=== PATIENT | male | born 1970 | race Caucasian/White ===

== ENCOUNTER → 2017-04-22 | Outpatient (CLI) | payer OTHER ==
--- NOTE | 2017-04-22 11:51 | XR ---
Left foot HISTORY: Left foot pain 3 views of the left foot There are some degenerative changes at the first metatarsophalangeal joint. Alignment and bone minera lization are maintained. No fracture or dislocation. There is a small plantar calcaneus spur. Calcifi cation is present level of insertion of the Achilles tendon. IMPRESSION: Mild degenerative changes and additional findings above.
== END | disposition home or self-care (01) ==
LOC: RADXRMAIN 07:51
PROVIDERS: ATTEND Internal Medicine
DX: M77.32 Calcaneal spur, left foot (principal); Z98.890 Other specified postprocedural states

== ENCOUNTER → 2017-05-08 | Outpatient (CLI) | payer OTHER ==
--- NOTE | 2017-05-08 09:47 | MR ---
EXAMINATION TYPE: MR lumbar spine wo con DATE OF EXAM: 05/08/2017 COMPARISON: NONE HISTORY: Low back pain TECHNIQUE: T1 and T2 axial and sagittal images of the lumbar spine are submitted. FINDINGS: There is no abnormal signal seen within the visualized spinal cord or paraspinal soft tissu es. At L1-2 there is mild disc desiccation but no disc herniation or canal stenosis. Neural foramina molina nt. At L2-3 there is no disc herniation or canal stenosis. No foraminal encroachment. Minimal left parace ntral disc bulging. At L3-4 there is hypertrophic change of the facets. No disc herniation or canal stenosis. No foramina l encroachment. At L4-5 there is there is facet arthropathy and disc desiccation with broad-based central disc bulgin g slightly greater paracentrally to the right. Mild effacement of thecal sac. No foraminal encroachme nt. At L5-S1 there is no disc herniation or canal stenosis. No foraminal encroachment. IMPRESSION: 1. Disc bulging L4-L5 with mild effacement of thecal sac but no canal stenosis or foraminal encroachm ent. 2. Minimal left paracentral disc bulging L2-L3.
== END | disposition home or self-care (01) ==
LOC: RADMRIMAIN 08:35
PROVIDERS: ATTEND Internal Medicine
DX: M51.26 Other intervertebral disc displacement, lumbar region (principal)
CPT/HCPCS: 72148

== ENCOUNTER 2017-06-03 07:08 | Emergency (ER) | payer OTHER ==
[2017-06-03 07:21] VITALS: BP 135/91; PULSE 62; RESP 16; TEMP 97.5
[2017-06-03] MEDS ORDERED: KETOROLAC 60 MG/2 ML VIAL IM STA (07:32)
[2017-06-03] MEDS ORDERED: ORPHENADRINE 30 MG/ML 2 ML VIAL IM STA (07:32)
--- NOTE | 2017-06-03 07:36 | ED ---
General Adult HPI - General Chief complaint: Back Pain/Injury Stated complaint: BACK PAIN Time Seen by Provider: 06/03/17 07:15 Source: patient, RN notes reviewed Mode of arrival: ambulatory Limitations: no limitations - History of Present Illness Initial comments: This 46-year-old male who presents emergency Department with a long-standing history of back pain. Patient states he just got an MRI the other day and was told he had some disc bulging. Patient states since he got the MRI 2 weeks ago he twisted and now has pain on the lower left side. Patient denies any radiation of the pain. Patient states the pain is worse with flexing or bending. Patient denies any numbness or weakness. Patient denies any urinary symptoms such as incontinence or urinary retention. Patient states the Motrin just isn't enough for his pain since coming to the emergency department. He has yet to follow up with his primary medical care doctor. - Related Data Home Medications Medication Instructions Recorded Confirmed Dexlansoprazole [Dexilant] 30 mg PO DAILY 08/29/14 08/29/14 Previous Rx's Medication Instructions Recorded Cyclobenzaprine [Flexeril] 10 mg PO TID #20 tab 06/03/17 Ketorolac [Toradol] 10 mg PO Q6HR #15 tab 06/03/17 Allergies Allergy/AdvReac Type Severity Reaction Status Date / Time No Known Allergies Allergy Verified 06/03/17 07:21 Review of Systems ROS Statement: Those systems with pertinent positive or pertinent negative responses have been documented in the HPI. ROS Other: All systems not noted in ROS Statement are negative. Past Medical History Past Medical History: Hyperlipidemia Additional Past Medical History / Comment(s): perforated bowel History of Any Multi-Drug Resistant Organisms: None Reported Additional Past Surgical History / Comment(s): stoma Past Psychological History: No Psychological Hx Reported Smoking Status: Never smoker Past Alcohol Use History: None Reported Past Drug Use History: None Reported General Exam - General Exam Comments Initial Comments: GENERAL: Patient is well-developed and well-nourished. Patient is nontoxic and well- hydrated and is in mild distress. ENT: Neck is soft and supple. No significant lymphadenopathy is noted. Oropharynx is clear. Moist mucous membranes. Neck has full range of motion without eliciting any pain. EYES: The sclera were anicteric and conjunctiva were pink and moist. Extraocular movements were intact and pupils were equal round and reactive to light. Eyelids were unremarkable. PULMONARY: Unlabored respirations. Good breath sounds bilaterally. No audible rales rhonchi or wheezing was noted. CARDIOVASCULAR: There is a regular rate and rhythm without any murmurs gallops or rubs. ABDOMEN: Soft and nontender with normal bowel sounds. SKIN: Skin is clear with no lesions or rashes and otherwise unremarkable. NEUROLOGIC: Patient is alert and oriented x3. Cranial nerves II through XII are grossly intact. Motor and sensory are also intact. Normal speech, volume and content. Symmetrical smile. Patient has normal leg raise MUSCULOSKELETAL: Normal extremities with adequate strength and full range of motion. No lower extremity swelling or edema. No calf tenderness. LYMPHATICS: No significant lymphadenopathy is noted PSYCHIATRIC: Normal psychiatric evaluation. Normal interpersonal interactions appears functionally intact in deals appropriately with others. No signs of depression. No signs of anxiety. Limitations: no limitations Course Vital Signs 06/03/17 07:18 Temperature 97.5 F L Pulse Rate 62 Respiratory 16 Rate Blood Pressure 135/91 O2 Sat by Pulse 97 Oximetry Disposition Clinical Impression: Strain of lumbar region Disposition: HOME SELF-CARE Condition: Good Instructions: Acute Low Back Pain (ED) Prescriptions: Cyclobenzaprine [Flexeril] 10 mg PO TID #20 tab Ketorolac [Toradol] 10 mg PO Q6HR #15 tab Referrals: Rasheed Rao DO [Primary Care Provider] - 1-2 days Time of Disposition: 07:35
== END 2017-06-03 07:49 | disposition home or self-care (01) ==
LOC: EC 07:08
DX: S39.012A Strain of muscle, fascia and tendon of lower back, initial encounter (principal); Z79.899 Other long term (current) drug therapy; X50.1XXA Overexertion from prolonged static or awkward postures, initial encounter
CPT/HCPCS: 99283; 96372 ×2; J2360; J1885

== ENCOUNTER 2022-02-01 14:15 | Observation (INO) | payer OTHER ==
[2022-02-01] MEDS ORDERED: SODIUM CHLORIDE 0.9% 1,000 ML IV STA (14:30)
[2022-02-01] MEDS ORDERED: MECLIZINE 12.5 MG TAB PO STA (14:30)
[2022-02-01] MEDS ORDERED: METOCLOPRAMIDE 5 MG/ML 2 ML VIAL IVP STA (14:31)
--- NOTE | 2022-02-01 14:54 | ED ---
General Adult HPI - General Chief complaint: Chest Pain Stated complaint: Chest pain, SOB, vomiting Time Seen by Provider: 02/01/22 14:22 Source: patient Mode of arrival: ambulatory Limitations: no limitations - History of Present Illness Initial comments: Patient is a 51-year-old male with history of diverticulitis with bowel perforation presenting with multiple complaints. Patient states that today he started having sudden onset dizziness. He admits to nausea and vomiting. He admits to right sided chest pain and shortness of breath, suspects that this coincides with the vomiting. Symptoms were sudden in onset. Chest pain does not radiate down the arm, up the neck, or to the back. Denies abdominal pain. Admits to generalized weakness. States that the dizziness gets worse with range of motion. He states that "I feel drunk", denies any alcohol or drug use. No fever, chills, vision or hearing changes, headache, neck pain or stiffness, cough, congestion, sore throat, unilateral weakness, numbness, tingling. - Related Data Home Medications Medication Instructions Recorded Confirmed Esomeprazole Magnesium [NexIUM 20 mg PO DAILY 02/01/22 02/01/22 24Hr] Meloxicam [Mobic] 7.5 - 15 mg PO DAILY PRN 02/01/22 02/01/22 Allergies Allergy/AdvReac Type Severity Reaction Status Date / Time No Known Allergies Allergy Verified 02/01/22 18:23 Review of Systems ROS Statement: Those systems with pertinent positive or pertinent negative responses have been documented in the HPI. ROS Other: All systems not noted in ROS Statement are negative. Past Medical History Past Medical History: Hyperlipidemia Additional Past Medical History / Comment(s): perforated bowel History of Any Multi-Drug Resistant Organisms: None Reported Additional Past Surgical History / Comment(s): stoma Past Psychological History: No Psychological Hx Reported Past Alcohol Use History: None Reported Past Drug Use History: None Reported General Exam General appearance: alert, anxious, lethargic Head exam: Present: atraumatic, normocephalic, normal inspection Eye exam: Present: normal appearance, PERRL, EOMI. Absent: scleral icterus, con junctival injection, periorbital swelling Pupils: Present: normal accommodation Neck exam: Present: normal inspection Respiratory exam: Present: normal lung sounds bilaterally. Absent: respiratory distress, wheezes, rales, rhonchi, stridor Cardiovascular Exam: Present: regular rate, normal rhythm, normal heart sounds. Absent: systolic murmur, diastolic murmur, rubs, gallop, clicks GI/Abdominal exam: Present: soft. Absent: distended, tenderness, guarding, rebound, rigid Neurological exam: Present: alert, oriented X3, CN II-XII intact Expanded Patient oriented to: Present: person, place, time Speech: Present: fluid speech Cranial nerves: EOM's Intact: Normal Eye Response: (4) open spontaneously Motor Response: (6) obeys commands Verbal Response: (5) oriented Daniela Total: 15 Psychiatric exam: Present: anxious Skin exam: Present: warm, dry, intact, normal color. Absent: rash Course Vital Signs 02/01/22 02/01/22 02/01/22 14:17 15:55 17:43 Temperature 97 F L Pulse Rate 62 61 54 L Respiratory 16 18 16 Rate Blood Pressure 143/91 126/83 132/88 O2 Sat by Pulse 99 98 98 Oximetry 02/01/22 18:43 Temperature 97.9 F Pulse Rate 68 Respiratory 18 Rate Blood Pressure 128/96 O2 Sat by Pulse 98 Oximetry EKG Findings - EKG Comments: EKG Findings:: Sinus bradycardia rate of 56. NM interval 173. QRS 90. QT 417. QTC 410. No T-wave inversion or ST deviation. EKG interpreted by me Medical Decision Making - Medical Decision Making Patient is a 51-year-old male presenting with chief complaint of dizziness started today. Admits to nausea and vomiting. Admits to mild chest pain located on the right side. Physical examination shows no focal weakness, extraocular motions are intact, PERRLA, full sensation is intact, heart and lungs are clear to auscultation. Vertigo appears dependent on position, worsens with head movement. CBC shows no leukocytosis or anemia. Troponin is less than 0.012. CMP is grossly unremarkable. Patient is negative for influenza, RSV, and Covid. Noncontrast brain CT shows no acute intracranial process, this is confirmed by my independent viewing. Chest x-ray shows no acute cardiopulmonary process, this is confirmed per my interpretation. Patient was trialed Reglan, scopolamine patch, meclizine, and Benadryl. On each reassessment patient was still unable to maintain a steady gait due to dizziness. He does not appear safe for discharge home. Patient will be admitted for vertigo. I spoke with Dr. Diana, who accepted admission. Patient is agreeable with this plan. I discussed this case with my attending Dr. Domínguez - Lab Data Result diagrams: 02/01/22 14:54 02/01/22 14:54 Lab Results 02/01/22 02/01/22 02/01/22 Range/Units 14:54 14:54 14:54 WBC 7.5 (3.8-10.6) k/uL RBC 5.04 (4.30-5.90) m/uL Hgb 15.3 (13.0-17.5) gm/dL Hct 43.6 (39.0-53.0) % MCV 86.6 (80.0-100.0) fL MCH 30.4 (25.0-35.0) pg MCHC 35.1 (31.0-37.0) g/dL RDW 12.8 (11.5-15.5) % Plt Count 147 L (150-450) k/uL MPV 10.2 Neutrophils % 61 % Lymphocytes % 30 % Monocytes % 5 % Eosinophils % 1 % Basophils % 1 % Neutrophils # 4.5 (1.3-7.7) k/uL Lymphocytes # 2.3 (1.0-4.8) k/uL Monocytes # 0.4 (0-1.0) k/uL Eosinophils # 0.1 (0-0.7) k/uL Basophils # 0.1 (0-0.2) k/uL PT 10.1 (9.0-12.0) sec INR 0.9 (<1.2) APTT 21.3 L (22.0-30.0) sec Sodium 137 (137-145) mmol/L Potassium 3.9 (3.5-5.1) mmol/L Chloride 104 (98-107) mmol/L Carbon Dioxide 26 (22-30) mmol/L Anion Gap 7 mmol/L BUN 17 (9-20) mg/dL Creatinine 1.08 (0.66-1.25) mg/dL Est GFR (CKD-EPI)AfAm >90 (>60 ml/min/1.73 sqM) Est GFR (CKD-EPI)NonAf 78 (>60 ml/min/1.73 sqM) Glucose 113 H (74-99) mg/dL Plasma Lactic Acid Bin (0.7-2.0) mmol/L Calcium 10.1 (8.4-10.2) mg/dL Magnesium 1.9 (1.6-2.3) mg/dL Total Bilirubin 0.9 (0.2-1.3) mg/dL AST 36 (17-59) U/L ALT 54 H (4-49) U/L Alkaline Phosphatase 82 (38-126) U/L Troponin I (0.000-0.034) ng/mL Total Protein 6.8 (6.3-8.2) g/dL Albumin 4.5 (3.5-5.0) g/dL Amylase 56 (30-110) U/L Lipase 78 (23-300) U/L Influenza Type A (PCR) (Not Detectd) Influenza Type B (PCR) (Not Detectd) RSV (PCR) (Not Detectd) SARS-CoV-2 (PCR) (Not Detectd) 02/01/22 02/01/22 02/01/22 Range/Units 14:54 14:54 14:54 WBC (3.8-10.6) k/uL RBC (4.30-5.90) m/uL Hgb (13.0-17.5) gm/dL Hct (39.0-53.0) % MCV (80.0-100.0) fL MCH (25.0-35.0) pg MCHC (31.0-37.0) g/dL RDW (11.5-15.5) % Plt Count (150-450) k/uL MPV Neutrophils % % Lymphocytes % % Monocytes % % Eosinophils % % Basophils % % Neutrophils # (1.3-7.7) k/uL Lymphocytes # (1.0-4.8) k/uL Monocytes # (0-1.0) k/uL Eosinophils # (0-0.7) k/uL Basophils # (0-0.2) k/uL PT (9.0-12.0) sec INR (<1.2) APTT (22.0-30.0) sec Sodium (137-145) mmol/L Potassium (3.5-5.1) mmol/L Chloride (98-107) mmol/L Carbon Dioxide (22-30) mmol/L Anion Gap mmol/L BUN (9-20) mg/dL Creatinine (0.66-1.25) mg/dL Est GFR (CKD-EPI)AfAm (>60 ml/min/1.73 sqM) Est GFR (CKD-EPI)NonAf (>60 ml/min/1.73 sqM) Glucose (74-99) mg/dL Plasma Lactic Acid Bin 1.5 (0.7-2.0) mmol/L Calcium (8.4-10.2) mg/dL Magnesium (1.6-2.3) mg/dL Total Bilirubin (0.2-1.3) mg/dL AST (17-59) U/L ALT (4-49) U/L Alkaline Phosphatase (38-126) U/L Troponin I <0.012 (0.000-0.034) ng/mL Total Protein (6.3-8.2) g/dL Albumin (3.5-5.0) g/dL Amylase (30-110) U/L Lipase (23-300) U/L Influenza Type A (PCR) Not Detected (Not Detectd) Influenza Type B (PCR) Not Detected (Not Detectd) RSV (PCR) Not Detected (Not Detectd) SARS-CoV-2 (PCR) Not Detected (Not Detectd) Disposition Clinical Impression: Vertigo Disposition: ADMITTED IP TO THIS [facility] Condition: Good Time of Disposition: 18:14 Decision to Admit Reason: Admit from EC Decision Date: 02/01/22 Decision Time: 18:15
[2022-02-01 15:10] LABS: Basophils # (A) 0.1 k/uL (0-0.2); Basophils % (A) 1 %; Eosinophils # (A) 0.1 k/uL (0-0.7); Eosinophils % (A) 1 %; HCT 43.6 % (39.0-53.0); HGB 15.3 gm/dL (13.0-17.5); Lymphocytes # (A) 2.3 k/uL (1.0-4.8); Lymphocytes % (A) 30 %; MCH 30.4 pg (25.0-35.0); MCHC 35.1 g/dL (31.0-37.0); MCV 86.6 fL (80.0-100.0); Mean Platelet Volume 10.2; Monocytes # (A) 0.4 k/uL (0-1.0); Monocytes % (A) 5 %; Neutrophils # (A) 4.5 k/uL (1.3-7.7); Neutrophils % (A) 61 %; Platelet Count 147 k/uL (150-450); RBC 5.04 m/uL (4.30-5.90); RDW 12.8 % (11.5-15.5); WBC 7.5 k/uL (3.8-10.6)
[2022-02-01] MEDS ORDERED: SCOPOLAMINE 1 MG/72 HR PATCH TRANSDERM STA (15:17)
[2022-02-01 15:27] LABS: ALT 54 U/L (4-49); AST 36 U/L (17-59); African American GFR (CKD) >90 (>60 ml/min/1.73 sqM); Albumin 4.5 g/dL (3.5-5.0); Alkaline Phosphatase 82 U/L (38-126); Amylase 56 U/L (30-110); Anion Gap 7 mmol/L; Blood Urea Nitrogen 17 mg/dL (9-20); Calcium 10.1 mg/dL (8.4-10.2); Carbon Dioxide 26 mmol/L (22-30); Chloride 104 mmol/L (98-107); Glucose 113 mg/dL (74-99); Lipase 78 U/L (23-300); Magnesium 1.9 mg/dL (1.6-2.3); Non-African American GFR(CKD) 78 (>60 ml/min/1.73 sqM); Potassium 3.9 mmol/L (3.5-5.1); Sodium 137 mmol/L (137-145); Total Bilirubin 0.9 mg/dL (0.2-1.3); Total Protein 6.8 g/dL (6.3-8.2)
[2022-02-01 15:35] LABS: INR 0.9 (<1.2); Prothrombin Time 10.1 sec (9.0-12.0)
--- NOTE | 2022-02-01 15:35 | XR ---
EXAMINATION TYPE: XR chest 2V DATE OF EXAM: 02/01/2022 3:23 PM COMPARISON: Chest x-ray 08/29/2014 TECHNIQUE: XR chest 2V . CLINICAL INDICATION:Male, 51 years old with history of Chest Pain; FINDINGS: Lungs/Pleura: Low lung volumes secondary to shallow inspiration. No focal airspace consolidation. No pneumothorax or pleural effusion. Pulmonary vascularity: Unremarkable. Heart/mediastinum: Cardiomediastinal silhouette is unremarkable. Musculoskeletal: Multiple level degenerative disc disease changes seen throughout the spine. No acute osseous abnormalities. IMPRESSION: No acute cardiopulmonary disease/process.
--- NOTE | 2022-02-01 15:40 | CT ---
EXAMINATION TYPE: CT brain wo con CT DLP: 1137.4 mGycm, Automated exposure control for dose reduction was used. DATE OF EXAM: 02/01/2022 3:32 PM COMPARISON: No relevant priors.. CLINICAL INDICATION:Male, 51 years old with history of weakness, dizziness, dizziness TECHNIQUE: Brain: Axial CT images of the brain were obtained with coronal and sagittal reformats created and rev iewed. Contrast used: None. Oral contrast used: None. FINDINGS: Brain: Extra-axial spaces: No abnormal extra-axial fluid collections. Ventricular system: Within normal limits Cerebral parenchyma: No acute intraparenchymal hemorrhage or mass effect. The caal-white junction is well differentiated. Cerebellum: Unremarkable. Mass effect: No evidence of midline shift. Intracranial vasculature: unremarkable Soft tissues: Normal. Calvarium/osseous structures: No depressed skull fracture. Paranasal sinuses and mastoid air cells: Mild scattered paranasal sinus disease. Visualized orbits: Orbital contents are intact. IMPRESSION: No acute intracranial process.
[2022-02-01] MEDS ORDERED: diphenhydrAMINE 50 MG/ML 1 ML VIAL IVP STA (15:46)
[2022-02-01 15:59] LABS: Partial Thromboplastin Time 21.3 sec (22.0-30.0)
[2022-02-01] MEDS ORDERED: ONDANSETRON 4 MG/2 ML VIAL IVP PRN (18:15)
[2022-02-01] MEDS ORDERED: NALOXONE 0.4 MG/ML 1 ML VIAL IV PRN (18:15)
[2022-02-01] MEDS: SODIUM CHLORIDE 0.9% 1,000 ML IV SCH (18:43)
[2022-02-01 22:39] LABS: Appearance,Urine Clear (Clear); Bilirubin,Urine Negative (Negative); Blood,Urine Negative (Negative); Color,Urine Colorless; Glucose,Urine (UA) Negative (Negative); Ketones,Urine Negative (Negative); Leukocyte Esterase,Urine Negative (Negative); Nitrite,Urine Negative (Negative); Protein,Urine Negative (Negative); Specific Gravity,Urine 1.007 (1.001-1.035); Urobilinogen,Urine <2.0 mg/dL (<2.0)
[2022-02-01 22:54] LABS: Amphetamine Screen,Urine Not Detected (NotDetected); Barbiturate Screen,Urine Not Detected (NotDetected); Benzodiazepines Screen,Urine Not Detected (NotDetected); Cocaine Screen,Urine Not Detected (NotDetected); Methadone Screen, Urine Not Detected (NotDetected); Opiate Screen,Urine Not Detected (NotDetected); Oxycodone Screen, Urine Not Detected (NotDetected); Phencyclidine Screen,Urine Not Detected (NotDetected); Tricyclic Antidepressant,Urine Not Detected (NotDetected); Urn Cannabinoid Scrn Detected (NotDetected)
[2022-02-02 04:19] VITALS: RESP 16
--- NOTE | 2022-02-02 06:17 | P.HPIM ---
History of Present Illness H&P Date: 02/01/22 Chief Complaint: Vertigo 51-year-old male with no significant past medical history Patient comes in complaining of sudden onset dizziness and vertigo. He denies any head injury or falls he denies any upper respiratory infection symptoms he denies any fevers chills or any recent illness denies any recent travel or hospital stay denies any history of strokes or blood clots. His symptoms started around Thursday 3 days ago when he was feeling dizzy with some nausea however he rested that day and woke up next day feeling better resolved. Then suddenly today he started having seen feeling of dizziness feeling very weak and fatigued unsteady on his feet with repeated nausea and vomiting and couple episodes of loose stools denies any abdominal pain denies any fevers or chills denies any known sick contacts denies any other family having similar symptoms at home. He suspecting a meal that he had to sit of honey and yogurt after which his symptoms started. Patient never felt like this before. He denies any other associated new onset focal neuro deficits. He reports chronic left foot toe numbness unchanged. Workup in the ED overall was unremarkable but work was unremarkable brain computed tomography scan was negative Patient denies any illicit drugs heavy alcohol or tobacco smoking. Patient does admit to occasional marijuana Review of Systems Pertinent positives as noted in HPI. All other systems were reviewed and are neg ative Past Medical History Past Medical History: Hyperlipidemia Additional Past Medical History / Comment(s): perforated bowel History of Any Multi-Drug Resistant Organisms: None Reported Additional Past Surgical History / Comment(s): stoma Past Psychological History: No Psychological Hx Reported Past Alcohol Use History: None Reported Past Drug Use History: None Reported - Past Family History Family Additional Family Medical History / Comment(s): Denies any history of stroke or coronary artery disease Medications and Allergies Home Medications Medication Instructions Recorded Confirmed Type Esomeprazole Magnesium [NexIUM 20 mg PO DAILY 02/01/22 02/01/22 History 24Hr] Meloxicam [Mobic] 7.5 - 15 mg PO DAILY PRN 02/01/22 02/01/22 History Allergies Allergy/AdvReac Type Severity Reaction Status Date / Time No Known Allergies Allergy Verified 02/01/22 18:23 Physical Exam Vitals: Vital Signs Temp Pulse Resp BP Pulse Ox 02/01/22 18:43 97.9 F 68 18 128/96 98 02/01/22 17:43 54 L 16 132/88 98 02/01/22 15:55 61 18 126/83 98 02/01/22 14:17 97 F L 62 16 143/91 99 Intake and Output 02/01/22 02/01/22 02/01/22 06:59 14:59 22:59 Other: Weight 99.79 kg Constitutional: No acute distress, conversant, pleasant Eyes: Anicteric sclerae, moist conjunctiva, Pupils equal round reactive to light ENMT: NC/AT Oropharynx clear, no erythema, or exudates Neck: Supple, no masses, or JVD No carotid bruits No thyromegaly Lungs: Clear to auscultation Clear to percussion Normal respiratory effort, no accessory muscle use Cardiovascular: Heart regular in rate and rhythm, No murmurs, gallops, or rubs No peripheral edema Abdominal: Soft Nontender, no guarding, rebound or rigidity Abdomen moving with respiration Normoactive bowel sounds No hepatomegaly, No splenomegaly No palpable mass No abdominal wall hernia noted Skin: Normal temperature, tone, texture, turgor No induration No subcutaneous nodules No rash, lesions No ulcers Extremities: No digital cyanosis No clubbing Pedal pulses intact and symmetrical Radial pulses intact and symmetrical No calf tenderness Psychiatric: Alert and oriented to person, place and time Appropriate affect fair judgement Neuro Muscles Strength 5/5 in all 4 extremities Sensation to light touch grossly present throughout Cranial nerves II-XII grossly intact No focal sensory deficits finger-nose exam is intact bilaterally [id number] exam intact bilaterally No noticeable nystagmus Lymphatics: no palpable cervical or supraclavicular , lymph nodes Results CBC & Chem 7: 02/01/22 14:54 02/01/22 14:54 Labs: Abnormal Lab Results - Last 24 Hours (Table) 02/01/22 02/01/22 02/01/22 Range/Units 14:54 14:54 14:54 Plt Count 147 L (150-450) k/uL APTT 21.3 L (22.0-30.0) sec Glucose 113 H (74-99) mg/dL ALT 54 H (4-49) U/L Assessment and Plan Assessment: Sudden onset vertigo with unsteady gait GI symptoms with nausea vomiting and loose stools rule out acute gastroenteritis and dehydration Brain computed tomography scan negative Continue with neuro checks Fall precautions Check MRI of the brain rule out underlying stroke Consider neurology consult if patient persists despite IV fluid hydration and supportive care IV fluid hydration normal saline Symptomatic control of nausea vomiting Symptomatic control of dizziness Monitor vital signs Full code DVT prophylaxis mechanical
[2022-02-02] MEDS: SODIUM CHLORIDE 0.9% 1,000 ML IV SCH (06:29)
[2022-02-02 09:06] VITALS: PULSE 65
[2022-02-02] MEDS ORDERED: MECLIZINE 25 MG TAB PO PRN (11:23)
[2022-02-02] MEDS ORDERED: ACETAMINOPHEN TAB 325 MG TAB PO PRN (11:24)
[2022-02-02] MEDS ORDERED: ASPIRIN 81 MG PO SCH (12:15)
[2022-02-02] MEDS ORDERED: ATORVASTATIN 40 MG TAB PO SCH (12:15)
[2022-02-02 13:52] VITALS: BP 113/63; TEMP 98.3
--- NOTE | 2022-02-02 15:24 | P.DS ---
Providers Date of admission: 02/01/22 18:04 Expected date of discharge: 02/02/22 Attending physician: Twila Diana MD Primary care physician: Stated None Hospital Course: Vertigo Hyperlipidemia 51 year old man with history of HLD presented with dizziness. In the ER, patient was afebrile, 143/91, heart rate 62, 99% room air. CBC was unremarkable. Chemistries were unremarkable. Liver function tests are unremarkable. Initial troponin is less than 0.012. Repeat troponin was less than 0.012. Coags were unremarkable. UA was unremarkable. Urine tox screen is positive for marijuana, otherwise unremarkable. And once a, B, RSV, Covid were all negative. EKG showed sinus bradycardia without evidence of ischemia. Brain CT head no acute intracranial process. Chest x-ray had no acute cardiopulmonary disease/process. Patient was admitted to observation. Patient underwent orthostatic vital testing which was negative. Patient's vertigo improved with meclizine when necessary. Patient reported improvement with this medication, and will be discharged with PCP follow-up as well as a prescription for meclizine. I also instructed him to resume his home aspirin as well as restart his home rosuvastatin which she has not been taking recently for his history of hyperlipidemia. Gen: awake, alert HEENT: normocephalic, atraumatic, good hearing acuity, moist mucous membranes Resp: good air exchange, breathing comfortably with no accessory muscle use CVS: good distal perfusion x 4, GI: soft, NTTP, ND : no SPT, no CVAT, burnett catheter not present MSK: no pitting edema, no clubbing Neuro: non-focal, moving all extremities Psych: cooperative, euthymic mood Patient Condition at Discharge: Good Plan - Discharge Summary Discharge Rx Participant: No New Discharge Prescriptions: New Aspirin 81 mg PO DAILY tab Ondansetron [Zofran] 4 mg PO Q6H PRN #30 tab PRN Reason: Nausea Meclizine [Antivert] 25 mg PO Q6HR PRN #30 tab PRN Reason: Vertigo Rosuvastatin [Crestor] 10 mg PO DAILY #30 tablet Acetaminophen Tab [Tylenol] 650 mg PO Q4HR PRN tab PRN Reason: Fever And/ Or Pain Continue Esomeprazole Magnesium [NexIUM 24Hr] 20 mg PO DAILY Meloxicam [Mobic] 7.5 - 15 mg PO DAILY PRN PRN Reason: Pain Discharge Medication List Esomeprazole Magnesium [NexIUM 24Hr] 20 mg PO DAILY 02/01/22 [History] Meloxicam [Mobic] 7.5 - 15 mg PO DAILY PRN 02/01/22 [History] Acetaminophen Tab [Tylenol] 650 mg PO Q4HR PRN tab 02/02/22 [Rx] Aspirin 81 mg PO DAILY tab 02/02/22 [Rx] Meclizine [Antivert] 25 mg PO Q6HR PRN #30 tab 02/02/22 [Rx] Ondansetron [Zofran] 4 mg PO Q6H PRN #30 tab 02/02/22 [Rx] Rosuvastatin [Crestor] 10 mg PO DAILY #30 tablet 02/02/22 [Rx] Follow up Appointment(s)/Referral(s): None,Stated [Primary Care Provider] - 1-2 days Discharge Disposition: HOME SELF-CARE
== END 2022-02-02 16:25 | disposition home or self-care (01) ==
LOC: EC 14:15 → 6NMEDSUR 18:04
PROVIDERS: ADMIT Internal Medicine; ATTEND Internal Medicine
DX: R42 Dizziness and giddiness (principal); R06.02 Shortness of breath; R07.9 Chest pain, unspecified; R11.2 Nausea with vomiting, unspecified; R53.1 Weakness; R00.1 Bradycardia, unspecified; K57.90 Diverticulosis of intestine, part unspecified, without perforation or abscess without bleeding; E78.5 Hyperlipidemia, unspecified; R20.0 Anesthesia of skin; Z20.822 Contact with and (suspected) exposure to COVID-19; Z79.899 Other long term (current) drug therapy; Z98.890 Other specified postprocedural states; Z87.19 Personal history of other diseases of the digestive system
CPT/HCPCS: 96375 ×2; 96361; 96374; 99285; 36415; 93005; 80053; 82150; 83605; 83690; 83735; 84484; 85025; 85610; 85730; 81003; 80306; 87636; 71046; 70450; G0378 ×2; J1200; J2765; J2405; 96373

== ENCOUNTER → 2022-02-10 | Outpatient (CLI) | payer OTHER ==
[2022-02-10 19:04] LABS: HDL Cholesterol 41.6 mg/dL (40.00-60.00); PSA Annual Screen 1.7 ng/mL (0.000-4.000)
[2022-02-10 19:16] LABS: Chol/HDL Ratio 4.9 Ratio; LDL Cholesterol,Direct Reflex 77.9 mg/dL (0.00-129.00)
== END | disposition home or self-care (01) ==
LOC: LABWHC1 10:47
PROVIDERS: ATTEND Internal Medicine
DX: Z12.5 Encounter for screening for malignant neoplasm of prostate (principal); E78.5 Hyperlipidemia, unspecified; I10 Essential (primary) hypertension; R73.9 Hyperglycemia, unspecified
CPT/HCPCS: 80061; 82947; 84443; 83721; 82306; 83036; 36415; G0103

== ENCOUNTER → 2024-02-19 | Outpatient (CLI) | payer OTHER ==
--- NOTE | 2024-02-19 09:48 | MR ---
EXAMINATION TYPE: MR lumbar spine wo/w con DATE OF EXAM: 02/19/2024 COMPARISON: NONE CLINICAL INDICATION: Male, 53 years old with history of G62.9 polyneuropathy PHH, Mid and lower back pain x 4 years. TECHNIQUE: T1 and T2 axial and sagittal images of the lumbar spine are submitted. As contrast T1 ax ial and sagittal images submitted. IV Contrast: 10 cc Gadobutrol (None if empty) FINDINGS: There is no abnormal signal seen within the visualized spinal cord or paraspinal soft tissu es. At L1-2 there is mild degenerative disc disease and hypertrophic spurring but no evidence of canal st enosis or disc herniation. Neural foramina patent At L2-3 there is there is an annular tear with small focal left paracentral disc herniation resulting in mild anterior impression on thecal sac. Neural foramina remain patent. At L3-4 there is mild hypertrophic change of the facets. No disc herniation or canal stenosis. Mild d isc desiccation. Neural foramina patent. At L4-5 there is mild disc desiccation with broad-based central disc bulging or small protrusion. Mil d effacement of thecal sac. No canal stenosis. Hypertrophy of the ligamentum flavum and facet joints and nodes significant foraminal encroachment. At L5-S1 there is no disc herniation or canal stenosis. No foraminal encroachment. Bilateral facet ar thropathy. IMPRESSION: 1. Multilevel wvzh-gr-opswfsru degenerative disc disease. 2. Small left paracentral disc herniation L2-L3. No foraminal encroachment. 3. Broad-based disc bulging or small broad-based protrusion L4-L5. EXAMINATION TYPE: MR thoracic spine wo/w con DATE OF EXAM: 02/19/2024 9:12 AM COMPARISON: None. CLINICAL INDICATION: Male, 53 years old with history of G62.9 polyneuropathy, Mid and lower back pain x 4 years. IV Contrast: 10 cc Gadobutrol (None if empty) CONTRAST: Standard multiplanar, multisequence MRI departmental protocol images were obtained without contrast a nd with 10 mL intravenous Gadobutrol gadolinium contrast. FINDINGS: At T1-T2 there is no disc herniation or canal stenosis. No foraminal encroachment. At T2-T3 there is no focal herniation or canal stenosis. Neural foramina patent. Mild degenerative di sc disease. T3-T4 there is right paracentral disc bulging. No canal stenosis. No foraminal encroachment. At T4-T5 no disc herniation, canal stenosis, or foraminal encroachment. At T5-T6 there is no focal herniation or canal stenosis. Neural foramina patent. At T6-T7 no disc herniation or canal stenosis. At T7-T8 no disc herniation or canal stenosis. No foraminal encroachment. At T8-T9 no disc herniation or canal stenosis. No foraminal encroachment. At T9-T10 no disc herniation or canal stenosis. No foraminal encroachment. At T10-T11 there is disc herniation or canal stenosis. No significant foraminal encroachment. At T11-T12 there is a right paracentral and lateral disc bulging. No canal stenosis. No significant f oraminal attachment. No abnormal signal within the visualized spinal cord. IMPRESSION: 1. Right paracentral and lateral disc bulging T11-T12 but no evidence of canal stenosis or foraminal protrusion. 2. Multilevel mild degenerative disc disease. Minimal disc bulging T3-T4 with no focal herniation, ca nal stenosis, or foraminal encroachment. [facility], , 02/19/2024 9:46 AM
== END | disposition home or self-care (01) ==
LOC: RADMRIMAIN 07:22
PROVIDERS: ATTEND Family Medicine
DX: M51.360 Other intervertebral disc degeneration, lumbar region with discogenic back pain only (principal); M51.34 Other intervertebral disc degeneration, thoracic region; G62.9 Polyneuropathy, unspecified
CPT/HCPCS: 72157; 72158; A9585

== ENCOUNTER → 2024-03-22 | Outpatient (CLI) | payer OTHER ==
--- NOTE | 2024-03-22 23:07 | MR ---
EXAMINATION TYPE: MR brain/cspine wo/w DATE OF EXAM: 03/22/2024 7:13 PM COMPARISON: None. CLINICAL INDICATION: Male, 53 years old with history of G62.9 POLYNEUROPATHY, UNSPECIFIED, Headaches, Forgetfulness, Numbness and tingling in feet/toes, Left side worse TECHNIQUE: Multiplanar, multiecho imaging on a 3.0 Eliza magnet is performed through the brain. Stud y is performed within 24 hours of arrival to the hospital.Multiplanar, multiecho imaging on a 3.0 Jasmin la magnet is performed through the knee. IV Contrast: 10 mL Gadobutrol (None, if empty) FINDINGS: The craniovertebral junction is normal. The pituitary is normal. Diffusion-weighted imaging is performed. No abnormal hyperintensity is present to suggest an acute i ntracranial infarct or acute ischemic change. There are scattered subcortical punctate areas of hyperintensity on T2 and Inversion Recovery weighte d sequences which are non-specific but can be related to microvascular ischemic changes. Ventricles and sulci are appropriate for the patient age. No enhancement is evident IMPRESSION: 1. Scattered punctate subcortical white matter changes can be compatible with chronic white matter is chemic changes. Differential diagnosis could include multiple sclerosis, vasculitis among other etiol ogies. EXAMINATION TYPE: MR brain/cspine wo/w DATE OF EXAM: 03/22/2024 7:13 PM COMPARISON: None. CLINICAL INDICATION: Male, 53 years old with history of G62.9 POLYNEUROPATHY, UNSPECIFIED, Headaches, Forgetfulness, Numbness and tingling in feet/toes, Left side worse TECHNIQUE: Multiplanar multiecho imaging on a 3.0 Eliza magnet is performed through the cervical spin e. IV Contrast: 10 mL Gadobutrol (None, if empty) FINDINGS: The craniovertebral junction is normal. Vertebral body alignment is normal. C7-T1: No focal disc herniation or significant disc bulge is evident. No spinal canal stenosis or n eural foraminal stenosis is present. C6-7: Broad-based disc bulge is moderate anterior thecal sac compression. No cord contact or AP spina l canal stenosis present. Bilateral foraminal narrowing from uncovertebral joint hypertrophy is prese nt.. C5-6: There is a right paracentral broad-based disc bulge with moderate anterior thecal sac compressi on. Cord contact and mild cord deformity in the right paracentral region is present. No AP spinal can al stenosis present. Bilateral foraminal narrowing right greater than left is present. C4-5: No focal disc herniation or significant disc bulge is evident. No spinal canal stenosis or kianna ral foraminal stenosis is present. C3-4: Left paracentral disc bulge is present with mild to moderate anterior thecal sac compression. N o cord contact or spinal canal stenosis is present. Neural foramina is narrowed on the left.. C2-3: No focal disc herniation or significant disc bulge is evident. No spinal canal stenosis or kianna ral foraminal stenosis is present. No enhancement is evident IMPRESSION: 1. Broad-based disc bulge with moderate anterior thecal sac compression at C5-6 has mild cord deformi ty. 2. Broad-based disc bulge C6-7 with moderate anterior thecal sac compression. 3. Foraminal stenosis present C5-6 on the left C3-4, bilateral C6-7 [facility], , 03/22/2024 11:05 PM
== END | disposition home or self-care (01) ==
LOC: RADMRIMAIN 17:59
PROVIDERS: ATTEND Family Medicine
DX: M48.02 Spinal stenosis, cervical region (principal); M50.322 Other cervical disc degeneration at C5-C6 level; G62.9 Polyneuropathy, unspecified; R90.82 White matter disease, unspecified
CPT/HCPCS: 70553; 72156; A9585